=== PATIENT | female | born 1980 | race Caucasian/White ===

== ENCOUNTER 2021-07-28 11:23 | Emergency (ER) | payer BC ==
[2021-07-28] MEDS ORDERED: Catapres 0.1 MG PO ONE (11:45)
--- NOTE | 2021-07-28 11:58 | ERPHSYRPT ---
- History of Present Illness Source: patient Exam Limitations: no limitations Patient Subjective Stated Complaint: pt here for HTN, co headache, funny taste in mouth, nauseated . has h xof htn but was taken off meds a year ago Triage Nursing Assessment: pt alert, arrived per wc with hands over face, resp easy. skin w/d/p. face mask applied, Physician History: 41 yo wf w elevated BP x3-4 days w L retro-orbital HENDERSON. Pain is 3/10, sharp, and accompanied w N/V. She has a h/o MGHA but states that this pain is somewhat different. Pt was taken off her lisinopril 1yr ago due to HTN. Bright lights make the pain worse. She denies cough/coryza/fever. Pt had scotoma before the pain. Timing/Duration: other (3-4 days) Head Pain Location: frontal (R retro-orbital) Severity of Pain-Max: moderate Severity of Pain-Current: mild Recent Head Trauma: no recent headache/trauma, occasional headaches Modifying Factors: Improves With: exposure to light Associated Symptoms: nausea/vomiting, scotoma, sensitive to light, No confusion, No dizziness, No fatigue, No facial pain, No fever/chills, No flushing, No light-headedness, No loss of consciousness, No nasal congestion, No nasal drainage, No neck pain, No numbness in legs/feet, No rash, No sweating, No seizures, No sinus infection, No speech problems, No stiff neck, No trouble walking, No vision changes, No visual disturbance, No weakness Previous symptoms: other (h/o MGHA) Allergies/Adverse Reactions: No Known Drug Allergies Allergy (Unverified 07/28/21 11:37) Hx Influenza Vaccination/Date Given: No Hx Pneumococcal Vaccination/Date Given: No Immunizations Up to Date: Yes Travel Risk - International Travel Have you traveled outside of the country in past 3 weeks: No - Coronavirus Screening Are you exhibiting any of the following symptoms?: No Close contact with a COVID-19 positive Pt in past 14-21 Days: No - Vaccine Status Have you recieved a Covid-19 vaccination: No - Review of Systems Constitutional: No Symptoms, No Fever, No Chills, No Fatigue Eyes: No Symptoms Ears, Nose, & Throat: No Symptoms Respiratory: No Symptoms Cardiac: No Symptoms Abdominal/Gastrointestinal: No Symptoms, Nausea, Vomiting Genitourinary Symptoms: No Symptoms Musculoskeletal: No Symptoms Skin: No Symptoms Neurological: No Symptoms, Headache Psychological: No Symptoms Endocrine: No Symptoms Hematologic/Lymphatic: No Symptoms Immunological/Allergic: No Symptoms - Past Medical History Pertinent Past Medical History: No - Past Surgical History Past Surgical History: Yes Gastrointestinal: Appendectomy, Cholecystectomy Female Surgical History: Hysterectomy, Section, Tubal Ligation, Other Other Surgical History: bladder surg - Social History Smoking Status: Never smoker Exposure to second hand smoke: No Drug Use: none Patient Lives Alone: No Significant Family History: no pertinent family hx - Female History Hx Last Menstrual Period: hyster Hx Now: No - Nursing Vital Signs Nursing Vital Signs: Initial Vital Signs Temperature 97 F 07/28/21 11:37 Pulse Rate 70 07/28/21 11:37 Respiratory Rate 18 07/28/21 11:37 Blood Pressure 157/94 07/28/21 11:37 O2 Sat by Pulse Oximetry 96 07/28/21 11:37 Pain Scale Pain Intensity 4 Hypertensive - Physical Exam General Appearance: no apparent distress Eye Exam: PERRL/EOMI, eyes nml inspection Ears, Nose, Throat Exam: normal ENT inspection, TMs normal, pharynx normal, moist mucous membranes Neck Exam: normal inspection, non-tender, supple, full range of motion, No meningismus, No mass, No Brudzinski, No Kernig's, No carotid bruit, No JVD Respiratory Exam: normal breath sounds, lungs clear, airway intact, No respiratory distress Cardiovascular Exam: regular rate/rhythm, normal heart sounds, normal peripheral pulses, No murmur Gastrointestinal/Abdominal Exam: soft, normal bowel sounds, No tenderness Back Exam: normal inspection, normal range of motion, No CVA tenderness, No vertebral tenderness Extremity Exam: normal inspection, normal range of motion Mental Status Exam: alert, oriented x 3, 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 Exam: normal hearing, normal speech, PERRL Coordination/Gait Exam: normal finger to nose, normal cerebellar function, negative Romberg's sign Motor/Sensory Exam: no motor deficit, no sensory deficit, no pronator drift, negative Babinski's sign DTR Exam: bicep (R): 2+, bicep (L): 2+, knee (R): 2+, knee (L): 2+ Skin Exam: normal color, warm, dry, No rash Lymphatic Exam: No adenopathy SpO2 Interpretation: normal SpO2: 96 O2 Delivery: Room Air - Course Nursing assessment & vital signs reviewed: Yes - CT Exams Head CT Interpretation: Discussed w/radiologist (NAD) Ordered Tests: Active Orders 24 hr Category Date Time Status HEAD WITHOUT CONTRAST [CT] Stat Exams 07/28/21 11:49 Completed Medication Summary Discontinued Medications Generic Name Dose Route Start Last Admin Trade Name Bronson PRN Reason Stop Dose Admin Clonidine 0.2 mg 07/28/21 11:45 07/28/21 12:30 Clonidine Hcl 0.1 Mg Tablet PO 07/28/21 11:46 0.2 mg STAT ONE Administration Clonidine Confirm 07/28/21 12:28 Clonidine Hcl 0.1 Mg Tablet Administered 07/28/21 12:29 Dose 0.1 mg .ROUTE .STK-MED ONE Clonidine Confirm 07/28/21 12:30 Clonidine Hcl 0.1 Mg Tablet Administered 07/28/21 12:31 Dose 0.1 mg .ROUTE .STK-MED ONE Ketorolac Tromethamine 60 mg 07/28/21 12:42 07/28/21 13:06 Ketorolac Tromethamine 30 Mg/Ml Inj IM 07/28/21 12:43 60 mg STAT ONE Administration Ketorolac Tromethamine Confirm 07/28/21 13:05 Ketorolac Tromethamine 30 Mg/Ml Inj Administered 07/28/21 13:06 Dose 60 mg .ROUTE .STK-MED ONE - Progress Progress: improved Progress Note: 07/28/21 12:43 0.2 po Clonidine w decrease in BP and pain 60mg IM Toradol Counseled pt/family regarding: diagnosis, need for follow-up, rad results - Departure Departure Disposition: Home Clinical Impression: Headache, Hypertension Condition: Stable Critical Care Time: No Referrals: SUSANNE VAZ [Primary Care Provider] - Follow up/PCP as directed Instructions: High Blood Pressure (DC), Headache, Adult (DC) Additional Instructions: Start Norvasc once a day Follow up with your family MD in 1-2 days Return to ER for increasing pain/focal weakness/temperature greater than 100.5/Systolic blood pressure greater than 170 or diastolic blood pressure greater than 110 Prescriptions: Amlodipine Besylate [Norvasc] 2.5 mg PO DAILY #30 tablet
--- NOTE | 2021-07-28 12:16 | XRAY ---
Indication: Frontal headache, nausea, dizziness. High blood pressure. Multiple contiguous axial images obtained through the head without contrast. Comparison: None Normal appearing brain parenchyma, ventricles, and bony calvarium. Visualized paranasal sinuses and mastoid air cells are clear. Impression: Normal CT head without contrast exam.
[2021-07-28] MEDS ORDERED: Catapres 0.1 MG ONE ×2 (12:28→12:30)
[2021-07-28] MEDS ORDERED: TORAdol 30 mg Injection IM ONE (12:42)
[2021-07-28 13:05] VITALS: BP 133/84; PULSE 62
[2021-07-28] MEDS ORDERED: TORAdol 30 mg Injection ONE (13:05)
[2021-07-28 19:26] VITALS: O2SAT 96
== END 2021-07-28 13:15 | disposition home or self-care (01) ==
LOC: ED 11:23
DX: I10 Essential (primary) hypertension (principal); R51.9 Headache, unspecified; R11.2 Nausea with vomiting, unspecified; H53.459 Other localized visual field defect, unspecified eye
CPT/HCPCS: 70450; 96372; 99284; J1885; A9270-GY

== ENCOUNTER 2022-03-21 14:58 | Emergency (ER) | payer BC ==
[2022-03-21] MEDS ORDERED: BABY ASPIRIN 81 MG CHEW PO ONE (15:05)
[2022-03-21 15:23] LABS: Absolute Neutrophil Ct (ANC) 3.91 x10^3/uL (1.4-6.9); Basophil (Absolute #) 0.03 x10^3/uL (0-0.4); Eosinophil % 1.4 % (0.00-5.0); Hematocrit 42.7 % (35-47); Hemoglobin 14.5 g/dL (12.0-16.0); Lymphocyte (Absolute #) 2.92 x10^3/uL (1.0-4.6); Lymphocytes % 39.8 % (24.0-44.0); Mean Cell Volume 86.8 fL (78-100); Mean Corpuscular Hemoglobin 29.5 pg (26-32); Mean Platelet Volume 9.4 fL (7.5-11.0); Monocyte (Absolute #) 0.35 x10^3/uL (0.0-1.3); Monocytes % 4.8 % (0.0-12.0); Neutrophil % 53.3 % (36.0-66.0); Platelet Count 299 x10^3/uL (150-450); Red Blood Count 4.92 x10^6/uL (4.1-5.4); Red Cell Distribution Width 12.4 % (11.5-14.0); White Blood Count 7.3 x10^3/uL (4.0-10.5)
--- NOTE | 2022-03-21 15:27 | ERPHSYRPT ---
- History of Present Illness Historian: patient Exam Limitations: no limitations Patient Subjective Stated Complaint: chest pain Triage Nursing Assessment: pt to ED c/o CP in center of chest that radiates to L shoulder. pt states she had shoulder pain yesterday but woke today with the CP. "its more right than painful." rates 3/10. also reports some nausea without emesis. heart sounds clear. lungs clear and equal bilaterally. denies cardiac hx. Physician History: 41 yo wf w L/R sternal chest pain described as "pressure-tightness" since 9:00AM today. Pain does not radiate and nothing makes it better or worse. Pain is ated a 3 on scale. She has had nausea/diaphoresis wo vomiting/dyspnea. Pt has HTN but denies DM/hyperlipidemia/FH CAD/tobacco use. Cough/fever are denied. Timing/Duration: other (9:00AM) Quality: pressure, tightness Location: central (R-L sternal) Chest Pain Radiation: no radiation Severity of Pain-Max: moderate Severity of Pain-Current: mild Modifying Factors: Improves With: nothing Associated Symptoms: nausea, diaphoresis, fatigue, weakness, No vomiting, No palpitations, No heartburn, No abdominal pain, No shortness of breath, No cough, No hurts to breathe, No chills, No fever, No swelling/lump in chest, No syncope, No rash, No headache, No dizziness, No edema, No back pain Prior Chest Pain/Cardiac Workup: no prior chest pain Nitro Today/Relief: no nitro taken today Aspirin Treatment Today: no aspirin today Allergies/Adverse Reactions: No Known Drug Allergies Allergy (Verified 03/21/22 14:59) Home Medications: Amlodipine Besylate [Norvasc] 2.5 mg PO HS 03/21/22 [History] Estradiol [Estrace] 0.5 mg PO DAILY 03/21/22 [History] hydroCHLOROthiazide [Hydrochlorothiazide] 12.5 mg PO DAILY 03/21/22 [History] Hx Tetanus, Diphtheria Vaccination/Date Given: Yes Hx Influenza Vaccination/Date Given: No Hx Pneumococcal Vaccination/Date Given: No Immunizations Up to Date: No Travel Risk - International Travel Have you traveled outside of the country in past 3 weeks: No - Coronavirus Screening Are you exhibiting any of the following symptoms?: No Close contact with a COVID-19 positive Pt in past 14-21 Days: No - Vaccine Status Have you recieved a Covid-19 vaccination: No - Review of Systems Constitutional: No Symptoms, Fatigue, Malaise Eyes: No Symptoms Ears, Nose, & Throat: No Symptoms Respiratory: No Symptoms Cardiac: No Symptoms, Chest Pain Abdominal/Gastrointestinal: No Symptoms, Nausea Genitourinary Symptoms: No Symptoms Musculoskeletal: No Symptoms Skin: No Symptoms Neurological: No Symptoms Psychological: No Symptoms Endocrine: No Symptoms Hematologic/Lymphatic: No Symptoms Immunological/Allergic: No Symptoms - Past Medical History Pertinent Past Medical History: Yes Cardiac History: Hypertension Female Reproductive Disorders: Other Other Medical History: beginning stages of bladder cancer - 2017 - Past Surgical History Past Surgical History: Yes Gastrointestinal: Appendectomy, Cholecystectomy Female Surgical History: Hysterectomy, Section, Tubal Ligation, Other Other Surgical History: bladder surg. ovarian cysts removed x 4. scar tissue removed from C section scar - Social History Smoking Status: Never smoker Exposure to second hand smoke: No Drug Use: none Patient Lives Alone: No Significant Family History: no pertinent family hx - Female History Hx Now: No - Nursing Vital Signs Nursing Vital Signs: Initial Vital Signs Temperature 97.7 F 03/21/22 15:01 Pulse Rate 84 03/21/22 15:01 Respiratory Rate 20 03/21/22 15:01 Blood Pressure 145/95 03/21/22 15:01 O2 Sat by Pulse Oximetry 99 03/21/22 15:01 Pain Scale Pain Intensity 3 Mildly hypertensive - Physical Exam General Appearance: no apparent distress Eye Exam: PERRL/EOMI, eyes nml inspection Ears, Nose, Throat Exam: normal ENT inspection, TMs normal, pharynx normal, moist mucous membranes Neck Exam: normal inspection, non-tender, supple, full range of motion, No meningismus, No mass, No Brudzinski, No Kernig's Respiratory Exam: normal breath sounds, lungs clear, airway intact, No chest tenderness, No respiratory distress Cardiovascular Exam: regular rate/rhythm, normal heart sounds, normal peripheral pulses, capillary refill <2 sec, No murmur Gastrointestinal/Abdomen Exam: soft, normal bowel sounds, No tenderness Back Exam: normal inspection, normal range of motion, CVA tenderness, No vertebral tenderness Extremity Exam: normal inspection, normal range of motion Neurologic Exam: alert, oriented x 3, cooperative, bellstand attendant II-XII nml as tested, normal mood/affect, nml cerebellar function, nml station & gait, sensation nml, No motor deficits, No sensory deficit Skin Exam: normal color, warm, dry Lymphatic Exam: No adenopathy SpO2 Interpretation: normal SpO2: 99 O2 Delivery: Room Air - Course Nursing assessment & vital signs reviewed: Yes EKG Interpreted by Me: RATE (NSR/Rate 82/Normal QT-QTc/Flat Twaves and inverted in V3/EKG#2 NSR/rate64/Flat T waves/Normal QT-QTc/No acute ST changes) - Radiology Exams Chest X-ray Interpretation: Interpreted by me (CXR/NAD) Ordered Tests: Active Orders 24 hr Category Date Time Status EKG-ER Only STAT Care 03/21/22 15:04 Completed IV Insertion STAT Care 03/21/22 15:04 Completed CHEST 1 VIEW (PORTABLE) Stat Exams 03/21/22 15:04 Completed CBC W DIFF Stat Lab 03/21/22 15:14 Completed CMP Stat Lab 03/21/22 15:14 Completed D-DIMER QUANTITATIVE Stat Lab 03/21/22 15:14 Completed NT PRO BNP Stat Lab 03/21/22 15:14 Completed PROTIME WITH INR Stat Lab 03/21/22 15:14 Completed PTT Stat Lab 03/21/22 15:14 Completed T4 (Thyroxine) Stat Lab 03/21/22 Completed TROPONIN Q3H Lab 03/21/22 15:14 Completed TROPONIN Q3H Lab 03/21/22 17:26 Completed TSH [TSH, 3RD Generation] Stat Lab 03/21/22 15:26 Completed Medication Summary Discontinued Medications Generic Name Dose Route Start Last Admin Trade Name Jensq PRN Reason Stop Dose Admin Aspirin 324 mg 03/21/22 15:05 03/21/22 15:09 Aspirin 81 Mg Tab.Chew PO 03/21/22 15:06 324 mg STAT ONE Administration Potassium Chloride 40 meq 03/21/22 16:18 03/21/22 16:32 Potassium Chloride Tab 10 Meq Tab PO 03/21/22 16:19 40 meq STAT ONE Administration Potassium Chloride Confirm 03/21/22 16:30 Potassium Chloride Tab 10 Meq Tab Administered 03/21/22 16:31 Dose 40 meq PO .STK-MED ONE Lab/Rad Data: Laboratory Result Diagrams 03/21/22 15:14 03/21/22 15:14 Laboratory Results 03/21/22 03/21/22 03/21/22 Range/Units Unknown 17:26 15:48 WBC (4.0-10.5) x10^3/uL RBC (4.1-5.4) x10^6/uL Hgb (12.0-16.0) g/dL Hct (35-47) % MCV (78-100) fL MCH (26-32) pg MCHC (32-36) g/dL RDW (11.5-14.0) % Plt Count (150-450) x10^3/uL MPV (7.5-11.0) fL Gran % (36.0-66.0) % Immature Gran % (Auto) (0.00-0.4) % Nucleat RBC Rel Count (0.00-0.1) % Eos # (Auto) (0-0.5) x10^3/uL Immature Gran # (Auto) (0.00-0.03) x10^3u/L Absolute Lymphs (auto) (1.0-4.6) x10^3/uL Absolute Monos (auto) (0.0-1.3) x10^3/uL Absolute Nucleated RBC (0.00-0.01) x10^3u/L Lymphocytes % (24.0-44.0) % Monocytes % (0.0-12.0) % Eosinophils % (0.00-5.0) % Basophils % (0.0-0.4) % Absolute Granulocytes (1.4-6.9) x10^3/uL Basophils # (0-0.4) x10^3/uL PT (9.4-12.5) SECONDS INR (0.8-3.0) APTT (25.1-36.5) SECONDS D-Dimer (0.0-0.50) mg/L Sodium (137-145) mmol/L Potassium (3.5-5.1) mmol/L Chloride (98-107) mmol/L Carbon Dioxide (22-30) mmol/L Anion Gap (5-15) MEQ/L BUN (7-17) mg/dL Creatinine (0.52-1.04) mg/dL Estimated GFR ML/MIN Glucose (74-106) mg/dL Calcium (8.4-10.2) mg/dL Total Bilirubin (0.2-1.3) mg/dL AST (14-36) U/L ALT (0-35) U/L Alkaline Phosphatase (38-126) U/L Troponin I < 0.012 (0.000-0.034) ng/mL NT-Pro-B Natriuret Pep (0-450) pg/mL Serum Total Protein (6.3-8.2) g/dL Albumin (3.5-5.0) g/dL Thyroxine (T4) 7.96 (5.53-10.96) ug/dL TSH 3rd Generation (0.47-4.68) mIU/L Influenza Type A Ag NEGATIVE (NEGATIVE) Influenza Type B Ag NEGATIVE (NEGATIVE) RSV (PCR) NEGATIVE (Negative) SARS-CoV-2 (PCR) NEGATIVE (NEGATIVE) 03/21/22 03/21/22 03/21/22 Range/Units 15:26 15:14 15:14 WBC (4.0-10.5) x10^3/uL RBC (4.1-5.4) x10^6/uL Hgb (12.0-16.0) g/dL Hct (35-47) % MCV (78-100) fL MCH (26-32) pg MCHC (32-36) g/dL RDW (11.5-14.0) % Plt Count (150-450) x10^3/uL MPV (7.5-11.0) fL Gran % (36.0-66.0) % Immature Gran % (Auto) (0.00-0.4) % Nucleat RBC Rel Count (0.00-0.1) % Eos # (Auto) (0-0.5) x10^3/uL Immature Gran # (Auto) (0.00-0.03) x10^3u/L Absolute Lymphs (auto) (1.0-4.6) x10^3/uL Absolute Monos (auto) (0.0-1.3) x10^3/uL Absolute Nucleated RBC (0.00-0.01) x10^3u/L Lymphocytes % (24.0-44.0) % Monocytes % (0.0-12.0) % Eosinophils % (0.00-5.0) % Basophils % (0.0-0.4) % Absolute Granulocytes (1.4-6.9) x10^3/uL Basophils # (0-0.4) x10^3/uL PT 10.8 (9.4-12.5) SECONDS INR 1.02 (0.8-3.0) APTT 29.4 (25.1-36.5) SECONDS D-Dimer < 0.19 (0.0-0.50) mg/L Sodium (137-145) mmol/L Potassium (3.5-5.1) mmol/L Chloride (98-107) mmol/L Carbon Dioxide (22-30) mmol/L Anion Gap (5-15) MEQ/L BUN (7-17) mg/dL Creatinine (0.52-1.04) mg/dL Estimated GFR ML/MIN Glucose (74-106) mg/dL Calcium (8.4-10.2) mg/dL Total Bilirubin (0.2-1.3) mg/dL AST (14-36) U/L ALT (0-35) U/L Alkaline Phosphatase (38-126) U/L Troponin I < 0.012 (0.000-0.034) ng/mL NT-Pro-B Natriuret Pep (0-450) pg/mL Serum Total Protein (6.3-8.2) g/dL Albumin (3.5-5.0) g/dL Thyroxine (T4) (5.53-10.96) ug/dL TSH 3rd Generation 2.580 (0.47-4.68) mIU/L Influenza Type A Ag (NEGATIVE) Influenza Type B Ag (NEGATIVE) RSV (PCR) (Negative) SARS-CoV-2 (PCR) (NEGATIVE) 03/21/22 03/21/22 Range/Units 15:14 15:14 WBC 7.3 (4.0-10.5) x10^3/uL RBC 4.92 (4.1-5.4) x10^6/uL Hgb 14.5 (12.0-16.0) g/dL Hct 42.7 (35-47) % MCV 86.8 (78-100) fL MCH 29.5 (26-32) pg MCHC 34.0 (32-36) g/dL RDW 12.4 (11.5-14.0) % Plt Count 299 (150-450) x10^3/uL MPV 9.4 (7.5-11.0) fL Gran % 53.3 (36.0-66.0) % Immature Gran % (Auto) 0.3 (0.00-0.4) % Nucleat RBC Rel Count 0.0 (0.00-0.1) % Eos # (Auto) 0.10 (0-0.5) x10^3/uL Immature Gran # (Auto) 0.02 (0.00-0.03) x10^3u/L Absolute Lymphs (auto) 2.92 (1.0-4.6) x10^3/uL Absolute Monos (auto) 0.35 (0.0-1.3) x10^3/uL Absolute Nucleated RBC 0.00 (0.00-0.01) x10^3u/L Lymphocytes % 39.8 (24.0-44.0) % Monocytes % 4.8 (0.0-12.0) % Eosinophils % 1.4 (0.00-5.0) % Basophils % 0.4 (0.0-0.4) % Absolute Granulocytes 3.91 (1.4-6.9) x10^3/uL Basophils # 0.03 (0-0.4) x10^3/uL PT (9.4-12.5) SECONDS INR (0.8-3.0) APTT (25.1-36.5) SECONDS D-Dimer (0.0-0.50) mg/L Sodium 140 (137-145) mmol/L Potassium 3.1 L (3.5-5.1) mmol/L Chloride 101 (98-107) mmol/L Carbon Dioxide 29 (22-30) mmol/L Anion Gap 12.9 (5-15) MEQ/L BUN 16 (7-17) mg/dL Creatinine 1.00 (0.52-1.04) mg/dL Estimated GFR > 60.0 ML/MIN Glucose 127 H (74-106) mg/dL Calcium 9.5 (8.4-10.2) mg/dL Total Bilirubin 0.40 (0.2-1.3) mg/dL AST 32 (14-36) U/L ALT 49 H (0-35) U/L Alkaline Phosphatase 97 (38-126) U/L Troponin I (0.000-0.034) ng/mL NT-Pro-B Natriuret Pep 31.2 (0-450) pg/mL Serum Total Protein 7.7 (6.3-8.2) g/dL Albumin 4.4 (3.5-5.0) g/dL Thyroxine (T4) (5.53-10.96) ug/dL TSH 3rd Generation (0.47-4.68) mIU/L Influenza Type A Ag (NEGATIVE) Influenza Type B Ag (NEGATIVE) RSV (PCR) (Negative) SARS-CoV-2 (PCR) (NEGATIVE) - Progress Progress: improved Progress Note: 03/21/22 18:17 324 ASA po Heart Score 2 Counseled pt/family regarding: lab results, diagnosis, need for follow-up, rad results - Departure Departure Disposition: Home Clinical Impression: Chest pain, Hypokalemia Condition: Stable Critical Care Time: No Referrals: SUSANNE VAZ [Primary Care Provider] - Follow up/PCP as directed Instructions: Hypokalemia (DC), Chest Pain (DC) Additional Instructions: Follow up with your family MD on Wednesday Return to ER for increasing pain or shortness of breath Start Potassium twice a day for 5 days Prescriptions: Potassium Chloride 20 meq PO BID 5 Days #10 tab
[2022-03-21 15:31] LABS: D-DIMER QUANTITATIVE < 0.19 mg/L (0.0-0.50); INR 1.02 (0.8-3.0); PROTIME 10.8 SECONDS (9.4-12.5); PTT 29.4 SECONDS (25.1-36.5)
[2022-03-21 15:37] LABS: ALBUMIN 4.4 g/dL (3.5-5.0); ALKALINE PHOSPHATASE 97 U/L (38-126); ANION GAP 12.9 MEQ/L (5-15); BLOOD UREA NITROGEN 16 mg/dL (7-17); CHLORIDE 101 mmol/L (98-107); Calcium 9.5 mg/dL (8.4-10.2); Carbon Dioxide 29 mmol/L (22-30); EST GLOMERULAR FILTRATION RATE > 60.0 ML/MIN; Glucose 127 mg/dL (74-106); NT PRO BNP 31.2 pg/mL (0-450); Potassium 3.1 mmol/L (3.5-5.1); SGOT/AST 32 U/L (14-36); SGPT/ALT 49 U/L (0-35); SODIUM 140 mmol/L (137-145); Total Protein 7.7 g/dL (6.3-8.2)
[2022-03-21] MEDS ORDERED: Klor Con PO ONE ×2 (16:18→16:30)
[2022-03-21 16:33] LABS: INFLUENZA A NEGATIVE (NEGATIVE); INFLUENZA B NEGATIVE (NEGATIVE); RESPIRATORY SYNCTIAL VIRUS NEGATIVE (Negative); SARS-CoV-2 Xpert Express NEGATIVE (NEGATIVE)
[2022-03-21 18:04] VITALS: BP 116/81; PULSE 61
[2022-03-21 18:20] VITALS: O2SAT 99
--- NOTE | 2022-03-21 19:35 | XRAY ---
Indication: Chest pain. Comparison: None Portable chest demonstrates normal heart, lungs, and bony thorax.
== END 2022-03-21 18:33 | disposition home or self-care (01) ==
LOC: ED 14:58
DX: R07.9 Chest pain, unspecified (principal); E87.6 Hypokalemia; R11.0 Nausea; I10 Essential (primary) hypertension; Z79.899 Other long term (current) drug therapy; Z28.310 Unvaccinated for COVID-19
CPT/HCPCS: 0241U; 36000; 36415; 71045; 80053; 83880; 84436; 84443; 84484; 85025; 85379; 85610; 85730; 93005; 99284; A9270-GY